=== PATIENT | male | born 1960 | race African-American/Black ===

== ENCOUNTER 2018-09-01 21:53 | Emergency (ER) | payer BC ==
[~2018-09-01] VITALS: Ht 180.3 cm; Wt 122.5 kg
[2018-09-01] MEDS ORDERED: METFORMIN HCL1000 MG PO (22:11)
[2018-09-01] MEDS ORDERED: LIVALO2 MG PO (22:12)
[2018-09-01] MEDS ORDERED: LISINOPRIL5 MG PO (22:12)
[2018-09-01] MEDS ORDERED: LANTUS SOL100 UNIT/1 SQ (22:13)
[2018-09-01] MEDS ORDERED: JARDIANCE10 MG PO (22:13)
[2018-09-01] MEDS ORDERED: VITAMIN D5000 UNIT PO (22:14)
[2018-09-01 23:10] LABS: ABSOLUTE NEUTROPHILS 3.2 thou/uL (1.4-8.2); BASOPHILS 0.9 % (0.0-2.0); HEMATOCRIT 35.8 % (42.0-52.0); HEMOGLOBIN 12.1 gm/dL (14.0-18.0); MCH 30.6 pg (26.0-34.0); MCHC 33.9 g/dL (28.0-37.0); MCV 90.3 fL (80.0-100.0); PLATELET COUNT 255 thou/uL (150-400); POLYS 68.1 % (36.0-66.0); RBC 3.96 mil/uL (4.50-6.00); RDW 14.1 % (10.5-14.5); WBC 4.7 thou/uL (4.0-11.0)
[2018-09-01 23:16] LABS: ANION GAP 8 mmol/L (7-16); BUN 21 mg/dL (7-18); CALCIUM 9.4 mg/dL (8.5-10.1); CHLORIDE 102 mmol/L (98-107); CO2 27 mmol/L (21-32); CREATININE 1.5 mg/dL (0.7-1.3); GLUCOSE 175 mg/dL (74-106); POTASSIUM 4.4 mmol/L (3.5-5.1); SODIUM 137 mmol/L (136-145)
[2018-09-01 23:26] LABS: TROPONIN-I <0.06 ng/mL (<0.06)
[2018-09-02 00:16] VITALS: BP 132/86
--- NOTE | 2018-09-03 13:27 | EKG ---
[address] [address] ELECTROCARDIOGRAM REPORT Name: SARANYA THOMAS JHON Room #: DEP Juan#: [id number] ������������������ Admission: 09/01/18 ������������������ Attend Phys: Discharge: 09/02/18 ������������������ Date of : 60 Report #: [id number] ����������������������������������������������������������������� [id number] THIS REPORT FOR: //name// [facility] ED Test Date: 2018-09-01 Test Time: 22:07:15 Pat Name: SARANYA THOMAS Department: Room: Gender: M Access Liaison: : 1960 Requested By: Anibal Ferrer Order Number: [id number] MD: Murray Amezquita Measurements Intervals [place] Rate: 85 P: 49 SD: 169 QRS: 20 QRSD: 87 T: 26 QT: 343 QTc: 408 Interpretive Statements Sinus rhythm Normal tracing No previous ECG available for comparison Electronically Signed On 09-03-2018 13:27:24 CDT by Murray Amezquita [email or web address] ��������������������������������������������� <ELECTRONICALLY SIGNED> ���������������������������������������� By: Murray Amezquita MD, [facility] ��������������������������������������������� 09/03/18 1327 [id number] Murray Amezquita MD, FACC /EPI
== END 2018-09-02 00:16 | disposition home or self-care (01) ==
LOC: ER 21:53
PROVIDERS: Emergency Medicine
DX: S29.012A Strain of muscle and tendon of back wall of thorax, initial encounter (principal); E11.9 Type 2 diabetes mellitus without complications; E78.00 Pure hypercholesterolemia, unspecified; Z85.46 Personal history of malignant neoplasm of prostate; Z79.4 Long term (current) use of insulin; X58.XXXA Exposure to other specified factors, initial encounter; Y93.89 Activity, other specified; Y92.89 Other specified places as the place of occurrence of the external cause; Y99.8 Other external cause status